=== PATIENT | female | born 1970 | race Two or more races ===

== ENCOUNTER 2024-11-06 05:29 | Day surgery (SDC) | payer OTHER ==
[2024-11-04 10:51] VITALS: BP 129/85
[~2024-11-06] VITALS: Ht 172.7 cm; Wt 86.2 kg
[2024-11-06] MEDS ORDERED: POVIDONE-IODINE 118 ML BOTT TOP ONE (07:06)
[2024-11-06] MEDS ORDERED: CEFAZOLIN SODIUM 1,000 MG VIAL ONE (07:07)
[2024-11-06] MEDS ORDERED: BUPIVACAINE HCL/MPF 0.5% 30ML VIAL ONE (07:07)
[2024-11-06] MEDS ORDERED: LIDOCAINE HCL 1%/EPINEPHRINE 20ML VIAL IJ ONE ×2 (07:07→14:45)
[2024-11-06] MEDS ORDERED: ENOXAPARIN SODIUM 30 MG/0.3 ML SYRINGE SUBCUTANEO ONE (07:21)
[2024-11-06] MEDS ORDERED: EPINEPHRINE HCL/PF 1 MG/ML AMPUL ONE ×2 (07:23→09:19)
[2024-11-06] MEDS ORDERED: LIDOCAINE HCL 1% 20 ML VIAL IJ ONE ×3 (07:23→09:22)
[2024-11-06] MEDS ORDERED: TRANEXAMIC ACID 100MG/1ML (1000MG) AMPUL IV ONE ×2 (09:21→16:15)
[2024-11-06] MEDS ORDERED: BACITRACIN 28.35 GM OINT.TUBE TOP ONE (10:30)
[2024-11-06] MEDS ORDERED: SUGAMMADEX SODIUM 200 MG/2 ML VIAL IV ONE (15:50)
== END 2024-11-06 21:30 | disposition home or self-care (01) ==
LOC: CIR.AMB 05:29
PROVIDERS: ATTEND Specialist
DX: N62 Hypertrophy of breast (principal); N64.89 Other specified disorders of breast